=== PATIENT | female | born 1960 | race Caucasian/White ===

== ENCOUNTER → 2016-08-21 | Outpatient (REF) | payer BC ==
[~2016-08-21] MED LIST: ARIM1TAB4 PO; FLON0.054; HYDR-2808 PO; VITMTA PO
== END ==
LOC: M LAB REF 12:51
PROVIDERS: ATTEND Internal Medicine Medical Oncology
DX: C50.919 Malignant neoplasm of unspecified site of unspecified female breast (principal)

== ENCOUNTER → 2017-02-01 | Outpatient (CLI) | payer BC ==
--- NOTE | 2017-02-01 08:50 | REPMRS ---
Patient History The patient states she had a clinical breast exam in 2016. Patient is postmenopausal, has history of breast cancer at age 45, had previous chemotherapy, and is nulliparous. Family history of breast cancer in paternal aunt at age 50 or over and breast cancer in maternal aunt at age 50 or over. 2 chemotherapies. Radiation therapy. Took tamoxifen beginning at age 46. Digital Mammo Screening Bilat: February 01, 2017 - Exam #: [id number] Bilateral CC and MLO view(s) were taken. Technologist: Nina Wells, Technologist Prior study comparison: January 28, 2016, bilateral digital mammo screening bilat performed at [facility]. January 26, 2015, bilateral digital mammo screening bilat performed at [facility]. FINDINGS: There are scattered fibroglandular densities. There is a fairly symmetric fibroglandular pattern in both breasts. There has been no interval development of masses, areas of architectural distortion or clusters of microcalcifications typical of malignancy. ASSESSMENT: BI-RADS/ACR category 2 mammogram. Benign finding(s). Recommendation Routine screening mammogram of both breasts in 1 year (for women over age 40). This mammogram was interpreted with the aid of an FDA-approved computer-aided dectection system. Electronically Signed By: Mehdi Goodson MD 02/01/17 [id number]
== END ==
LOC: M RAD 08:27
PROVIDERS: ATTEND Internal Medicine Medical Oncology
DX: Z12.31 Encounter for screening mammogram for malignant neoplasm of breast (principal); Z78.0 Asymptomatic menopausal state; Z85.3 Personal history of malignant neoplasm of breast

== ENCOUNTER → 2017-02-20 | Outpatient (CLI) | payer BC ==
--- NOTE | 2017-02-21 12:21 | DEXA ---
AP SPINE L1 - L4 0.856 -2.7 -1.8 LT FEMUR TOTAL 0.994 -0.1 0.6 RT FEMUR TOTAL 0.932 -0.6 0.1 TOTAL BODY TOTAL OTHER DUAL FEMUR FRAX* ASSESSMENT Risk factors: Now performed. 10 year probability of fracture Major osteoporotic fracture % Hip fracture % COMMENTS: Normal bone densitometry of the left hip. There is low bone density of the right hip. There is osteoporosis of the spine. The decreased density of the spine does represent a significant change. The decreased density of the left hip does represent a significant change. The decreased density of the right hip does represent a significant change. The density of the spine has decreased 13.1% since the initial exam on 2011. Spine density has decreased 8.9% since the most recent exam on 02/26/2015. The density of the left hip has decreased 9.5% since the initial exam on 2011. The density of the left hip has decreased 3.9% since the most recent exam on . The density of the right hip has decreased 10.0% since the initial exam on 02/19. The density of the right hip has decreased 5.1% since the most recent exam on . FOLLOW-UP: Recommendation for the next bone density exam: 2 years. HARSHAD
== END ==
LOC: M WHC 08:42
PROVIDERS: ATTEND Internal Medicine Medical Oncology
DX: Z13.820 Encounter for screening for osteoporosis (principal); M81.0 Age-related osteoporosis without current pathological fracture; Z85.3 Personal history of malignant neoplasm of breast

== ENCOUNTER → 2017-09-18 | Outpatient (REF) | payer BC ==
[2017-09-18 15:08] LABS: CA15-3 ANTIGEN 23.9 U/ML (<32.4)
[2017-09-20 00:06] LABS: CA 27.29 33.5 U/mL (0.0-38.6)
== END ==
LOC: M LAB REF 13:32
DX: C50.919 Malignant neoplasm of unspecified site of unspecified female breast (principal)
CPT/HCPCS: 86300

== ENCOUNTER → 2018-02-04 | Outpatient (CLI) | payer BC | LOC: M RAD 08:30 | DX: Z12.31 Encounter for screening mammogram for malignant neoplasm of breast (principal); Z85.3 Personal history of malignant neoplasm of breast | CPT/HCPCS: 77067 ==

== ENCOUNTER → 2018-02-21 | Outpatient (CLI) | payer BC | LOC: M WHC 12:44 | DX: M85.88 Other specified disorders of bone density and structure, other site (principal); M85.851 Other specified disorders of bone density and structure, right thigh; M85.852 Other specified disorders of bone density and structure, left thigh; C79.9 Secondary malignant neoplasm of unspecified site | CPT/HCPCS: 77080 ==

== ENCOUNTER → 2018-11-19 | Outpatient (REF) | payer BC ==
[~2018-11-19] MED LIST changes: -ARIM1TAB4 PO; +ARIM1TAB5 PO; +CALC12504 PO; +FLON1SPR; +LISI-542 PO
[2018-11-19 11:49] LABS: HEMATOCRIT 42.8 % (36.0-47.0); HEMOGLOBIN 14.5 g/dl (12.0-15.5); MEAN CORPUSCULAR HEMOGLOBIN 32.1 pg (27.0-33.0); MEAN CORPUSCULAR HGB CONC 33.9 g/dl (32.0-36.5); MEAN CORPUSCULAR VOLUME 94.7 fl (80.0-96.0); PLATELET COUNT, AUTOMATED 269 10^3/uL (150-450); RED BLOOD COUNT 4.52 10^6/uL (4.00-5.40)
[2018-11-19 12:02] LABS: ALBUMIN 4.1 GM/DL (3.2-5.2); ALT/SGPT 25 U/L (12-78); BILIRUBIN,TOTAL 0.4 MG/DL (0.2-1.0); BLOOD UREA NITROGEN 15 MG/DL (7-18); CALCIUM LEVEL 9.5 MG/DL (8.5-10.1); CARBON DIOXIDE LEVEL 29 MEQ/L (21-32); CHLORIDE LEVEL 105 MEQ/L (98-107); CHOLESTEROL LEVEL 193 MG/DL (<200); CHOLESTEROL RISK RATIO 3.216 (<5); CREATININE FOR GFR 0.81 MG/DL (0.55-1.30); GLOMERULAR FILTRATION RATE > 60.0 (>51); GLUCOSE, FASTING 116 MG/DL (70-100); HDL CHOLESTEROL 60 MG/DL (>40); LDL CHOLESTEROL 102 MG/DL (<100); NON-HDL-C 133 MG/DL; POTASSIUM SERUM 4.3 MEQ/L (3.5-5.1); SODIUM LEVEL 139 MEQ/L (136-145); TOTAL PROTEIN 7.2 GM/DL (6.4-8.2); TRIGLYCERIDES LEVEL 153 MG/DL (<150)
== END ==
LOC: M SFHCCLAY 07:39
PROVIDERS: ATTEND Nurse Practitioner Family
DX: I10 Essential (primary) hypertension (principal); E78.5 Hyperlipidemia, unspecified

== ENCOUNTER → 2019-02-06 | Outpatient (CLI) | payer BC ==
[~2019-02-06] MED LIST changes: -CALC12504 PO; +CALC500T61 PO; +[UNRECOGNIZED DRUG - CODE] PO
--- NOTE | 2019-02-06 09:38 | REP ---
Left breast ultrasound: Ultrasound of the left breast identifies a hypoechoic mass centrally in the breast with irregular lobulated margins measuring 1.7 by 1.6 by 2.3 cm, corresponding to the mass identified on the mammograms earlier today. . Impression: BIRADS category five, highly suspicious of malignancy. Electronically Signed by Mehdi Hull MD 02/06/2019 09:30 A
--- NOTE | 2019-02-06 09:57 | REP ---
BILATERAL SCREENING DIGITAL MAMMOGRAM WITH 3D TOMOSYNTHESIS: There are no palpable abnormalities or other breast complaints. The the patient states she had a clinical breast examination in October/2018. The Tyrer-Cuzick score is: The NA. The the patient is a clinical history of bilateral breast carcinoma. Comparisons are 01/28/2016, 02/01/2017 and 02/04/2018. The breasts are almost entirely fatty.. There is a new 3.4 cm mass-like density centrally in the left breast as a change from all prior studies. There are benign macrocalcifications bilaterally, unchanged. Impression: BIRADS/ACR category 0 mammogram. Additional imaging evaluation is needed. Recommendation: The patient should return for diagnostic spot compression views of the left breast and left breast ultrasound . We are attempting to schedule these studies so that they can be performed today. This mammogram was interpreted with the aid of a FDA approved computer-aided detection system. A. Negative mammogram reports should not delay biopsy if a dominant or clinically suspicious mass is present. B. Not all breast cancers are identified by mammography or tomosynthesis. C. Adenosis and dense breasts may obscure an underlying neoplasm. Patient letter M0. Left breast on diagnostic spot compression views: Spot compression views are performed in the MLO, CC and L L projections. The mass like density persists on the spot compression views. The margins of the mass-like density are poorly defined. Therefore, left breast ultrasound will be performed. Electronically Signed by Mehdi Hull MD 02/06/2019 09:48 A
== END ==
LOC: M RAD 07:59
PROVIDERS: ATTEND Internal Medicine Medical Oncology
DX: Z12.31 Encounter for screening mammogram for malignant neoplasm of breast (principal); Z85.3 Personal history of malignant neoplasm of breast

== ENCOUNTER → 2019-02-14 | Outpatient (CLI) | payer BC ==
[~2019-02-14] MED LIST changes: +LIDOCAINE 1% MDV 20ML VIAL As Ordered ONE
[2019-02-14 13:10] VITALS: BP 133/76
--- NOTE | 2019-02-14 18:26 | REP ---
POST-BIOPSY MAMMOGRAM LEFT BREAST: Post-biopsy mammogram of the left breast was performed in the MLO and CC projections, following ultrasound guided biopsy of a nodule recently identified in the left breast 02/06/2019. The metallic biopsy clip is in the biopsied nodule. Electronically Signed by Mehdi Goodson MD 02/17/2019 11:29 A
--- NOTE | 2019-02-17 11:18 | REP ---
Ultrasound-guided left breast biopsy. The procedure was performed by TAD Velazquez, under the direct supervision of Dr. Goodson. The patient has a history of a hypoechoic mass centrally in the left breast measuring 1.7 x 1.6 x 2.3 cm on an ultrasound dated 02/06/2019. The risks and benefits of the procedure were explained to the patient and informed consent was obtained both verbally and written. Directly prior to the start of the procedure, a formal timeout was completed in the procedure room. The left breast mass was localized using ultrasound guidance. The skin was prepped and draped in a sterile fashion. 10 ml 1% lidocaine was used as a local anesthetic. Using ultrasound guidance a 13-gauge suction assisted Mammotome needle was inserted and 6 core biopsy samples were obtained. A marker clip was placed at the biopsy site. The patient tolerated the procedure well and there were no immediate complications. After the appropriate monitored convalescence the patient was discharged from the department. Reviewed by TAD Moore 02/14/2019 01:47 P Electronically Signed by Mehdi Goodson MD 02/17/2019 11:09 A
== END ==
LOC: M IRPRO 11:40
DX: C50.912 Malignant neoplasm of unspecified site of left female breast (principal)

== ENCOUNTER → 2019-02-17 | Outpatient (CLI) | payer BC ==
[~2019-02-17] MED LIST changes: -LIDOCAINE 1% MDV 20ML VIAL As Ordered ONE
--- NOTE | 2019-02-21 15:18 | DEXA ---
AP SPINE L1 - L4 0.947 -2.0 -0.9 LT FEMUR TOTAL 1.069 0.5 1.3 LT NECK 0.961 -0.6 0.6 RT FEMUR TOTAL 0.974 -0.3 0.6 RT NECK 0.926 -0.8 0.4 TOTAL BODY TOTAL OTHER COMMENTS: Normal bone densitometry of the hips. There is low bone density of the spine. The density of the spine has decreased 3.9% since the initial exam on 02/20/2012. The spine density has increased 1.2% since the most recent exam on 02/21/2018. The density of the left hip has decreased 2.6% since the initial exam on 02/20/2012. The density of the left hip has increased 1.7% since the most recent exam on 02/21/2018. The density of the right hip has decreased 5.9% since the initial exam on 02/20/2012. The density of the right hip has increased 0.7% since the most recent exam on 02/21/2018. FOLLOW-UP: Recommendation for the next bone density exam: 2 years. JUAND
== END ==
LOC: M WHC 07:35
PROVIDERS: ATTEND Internal Medicine Medical Oncology
DX: Z85.3 Personal history of malignant neoplasm of breast (principal)

== ENCOUNTER → 2019-02-26 | Outpatient (CLI) | payer BC ==
[~2019-02-26] MED LIST changes: +ACET-907 PO; +CEPH500C PO; +DOXY100C PO; +GASTROGRAFIN SOLUTION 30ML (Q9963) As Ordered ONE; +ISOVUE-370 76% 100ML VIAL (Q9967) As Ordered ONE; +KEFL500C17 PO; +ONDA8TAB10 PO; +PAXI10TA12 PO; +PROC10TA4 PO
--- NOTE | 2019-02-26 10:44 | REP ---
REASON FOR EXAM: History of breast cancer. Prior CT examinations of the chest of 03/11/2010 and 04/10/2006 have been reviewed. CONTRAST: 100 mL Isovue-370. There is no mediastinal or hilar adenopathy. There are no pleural or pericardial effusions. The imaged osseous structures are within normal limits. Evaluation of the lung mullins shows no new abnormal nodules, masses, or opacities. Incidental note is made of a stable 3-mm sized right apical nodule posteriorly. Postbiopsy and surgical clips are seen in each breast. CT cannot evaluate breast tissue. There is, however, nodular density in the left breast with surgical biopsy marking clip in place. IMPRESSION: No acute intrathoracic disease. Findings as described above. Electronically Signed by Manuel Grove DO 02/26/2019 12:38 P
--- NOTE | 2019-02-26 10:44 | REP ---
REASON: History of breast cancer. COMPARISON: Multiple, all reviewed, the latest 02/02/2015. CONTRAST: 100 mL Isovue 370. The liver, gallbladder, spleen, pancreas, adrenal glands, and kidneys are within normal limits and essentially unchanged. The abdominal aorta and paraaortic regions are within normal limits. The bowel loops and their mesenteries are within normal limits. There is no free fluid or free air. There is no intra-abdominal mass or adenopathy. CT PELVIS: The bowel loops and their mesenteries are within normal limits. There is no mass or adenopathy. There is no free fluid or free air. Bone window technique throughout the exam shows chronic spinal degenerative changes status quo. IMPRESSION: No acute intra-abdominal or intrapelvic disease. Electronically Signed by Manuel Grove DO 02/26/2019 12:37 P
--- NOTE | 2019-02-26 11:49 | REP ---
WHOLE BODY BONE SCAN: Following the intravenous administration of 22 mCi technetium 99m MDP, patient's whole body is imaged in the anterior and posterior projections with additional oblique and lateral views obtained. Comparison is made with prior study of 03/11/2010. There is no compelling scintigraphic evidence of osseous metastases. There appears to be some minimal scattered arthritic uptake, specifically in portions of the spine, at the right hip joint, and at the sacroiliac joints. No suspicious focal area of abnormal uptake is seen in the axial or appendicular skeleton. Renal and bladder activity are seen. IMPRESSION: No compelling scintigraphic evidence of osseous metastases. Electronically Signed by Mehdi Goodson MD 02/26/2019 02:40 P
== END ==
LOC: M RAD 07:28
PROVIDERS: ATTEND Internal Medicine Medical Oncology
DX: C50.912 Malignant neoplasm of unspecified site of left female breast (principal); Z12.89 Encounter for screening for malignant neoplasm of other sites
CPT/HCPCS: 71260; 74177; 78306; A9503; Q9963; Q9967

== ENCOUNTER → 2019-04-17 | Outpatient (CLI) | payer BC ==
[~2019-04-17] MED LIST changes: -ACET-907 PO; -CEPH500C PO; -DOXY100C PO; -GASTROGRAFIN SOLUTION 30ML (Q9963) As Ordered ONE; -ISOVUE-370 76% 100ML VIAL (Q9967) As Ordered ONE; -KEFL500C17 PO; -ONDA8TAB10 PO; +ONDA8TAB7 PO
--- NOTE | 2019-04-17 11:21 | REP ---
DIAGNOSTIC MAMMOGRAM LEFT BREAST WITH 3D TOMOSYNTHESIS AND LEFT BREAST ULTRASOUND: MLO and CC views of the left breast performed with 3D tomosynthesis. Patient is status post chemotherapy for left breast cancer diagnosed by biopsy 02/14/2019. Family history of breast cancer in maternal aunt and paternal aunt. Prior personal history bilateral breast cancer. Comparison made with prior diagnostic images 02/06/2019. Comparison is also made with other prior exams. MLO and CC views of the left breast performed with 3D tomosynthesis show decreased in size of the mass in the outer left breast. Measurements are estimated to be 14 x 7 mm, previously 22 x 18 mm. No new mass or clustered microcalcifications are seen. Metallic clip is again seen at the biopsy site. Real-time sonographic evaluation of the left breast performed and compared to the prior ultrasound of 02/06/2019. The irregular hypoechoic mass is again see now demonstrating an internal clip. Irregular borders are again noted. The mass has decreased in size. Current measurements are 1.2 x 0.5 x 1.1 cm, previously 1.7 x 1.6 x 1.9 cm. IMPRESSION: BIRADS 6: BI-RADS/ACR category 6 mammogram. Known Biopsy Proven Malignancy. ACR 6 known left breast cancer. Ultrasound-guided biopsy of a mass in the left breast 02/14/2019 was positive for breast cancer. Patient has had chemotherapy since that exam. The mass has decreased in size both mammographically and sonographically as discussed in detail above. This mammogram was interpreted with the aid of an FDA-approved computer-aided detection system. A. Negative x-ray reports should not delay biopsy if a dominant or clinically suspicious mass is present. B. Four to eight percent of cancers are not identified by x-ray. C. Adenosis and dense breasts may obscure an underlying neoplasm. The patient states she/he had a clinical breast exam in February 2019. Electronically Signed by Mehdi Goodson MD 04/18/2019 09:17 A
== END ==
LOC: M RAD 09:46
PROVIDERS: ATTEND Internal Medicine Medical Oncology
DX: C50.812 Malignant neoplasm of overlapping sites of left female breast (principal); Z80.3 Family history of malignant neoplasm of breast
CPT/HCPCS: 76642; 77065; G0279

== ENCOUNTER 2019-05-26 13:41 | Inpatient (IN) | payer BC ==
[~2019-05-26] VITALS: Ht 160 cm; Wt 83.0 kg
[~2019-05-26 13:41] MED LIST changes: +KEFL500C17 PO
[2019-05-26 14:20] LABS: HEMATOCRIT 39.1 % (36.0-47.0); HEMOGLOBIN 12.4 g/dl (12.0-15.5); MEAN CORPUSCULAR HEMOGLOBIN 32.5 pg (27.0-33.0); MEAN CORPUSCULAR HGB CONC 31.7 g/dl (32.0-36.5); MEAN CORPUSCULAR VOLUME 102.6 fl (80.0-96.0); PLATELET COUNT, AUTOMATED 259 10^3/uL (150-450); RED BLOOD COUNT 3.81 10^6/uL (4.00-5.40); WHITE BLOOD COUNT 29.6 10^3/uL (4.0-10.0)
[2019-05-26 14:39] LABS: ATYPICAL LYMPH 1 % (0-5); LYMPHOCYTES 9 % (16-44); METAMYELOCYTES 4 % (0-0); MONOCYTES 4 % (0-5); MYELOCYTES 3 % (0-0); NEUTROPHILS 71 % (28-66)
[2019-05-26 14:40] LABS: PLATELET ESTIMATE NORMAL (NORMAL)
[2019-05-26 14:47] LABS: ALBUMIN 3.9 GM/DL (3.2-5.2); ALT/SGPT 87 U/L (12-78); BILIRUBIN,DIRECT < 0.1 MG/DL (0.0-0.2); BILIRUBIN,TOTAL 0.3 MG/DL (0.2-1.0); BLOOD UREA NITROGEN 12 MG/DL (7-18); C REACTIVE PROTEIN QUANTITATIV 0.82 MG/DL (0.00-0.30); CALCIUM LEVEL 8.9 MG/DL (8.5-10.1); CARBON DIOXIDE LEVEL 26 MEQ/L (21-32); CHLORIDE LEVEL 103 MEQ/L (98-107); CREATININE FOR GFR 0.61 MG/DL (0.55-1.30); GLOMERULAR FILTRATION RATE > 60.0 (>51); GLUCOSE, FASTING 103 MG/DL (70-100); POTASSIUM SERUM 4.3 MEQ/L (3.5-5.1); SODIUM LEVEL 137 MEQ/L (136-145)
[2019-05-26] MEDS ORDERED: VANCOMYCIN HCL 1,000 MG, VIAL MATE ADAPTER 1 EACH in D5W 250 ML IV ONE (15:15)
[2019-05-26] MEDS ORDERED: CEPH500C PO (15:45)
[2019-05-26] MEDS ORDERED: ACET-907 PO (15:45)
[2019-05-26] MEDS ORDERED: ONDANSETRON 4 MG TAB (S0181) PO PRN (16:15)
[2019-05-26] MEDS ORDERED: ACETAMINOPHEN TAB 650MG DOSE (2X325MG) PO PRN (16:15)
[2019-05-26] MEDS ORDERED: PROCHLORPERAZINE 5 MG TAB (S0183) PO PRN (16:15)
--- NOTE | 2019-05-26 16:29 | HPEPDOC ---
General Date of Admission Date of Service: May 26, 2019 Chief Complaint The patient is a 58-year-old female admitted with a reason for visit of Hand Pain. History of Present Illness 58 y/o F with h/o infiltrating ductal carcinoma of the left breast, stage II, recently completed neoadjuvant chemotherapy using Taxotere with cyclophosphamide and is scheduled for surgery to be performed 06/11/2019. Pt most recently received systemic antineoplastic chemotherapy on May 15, administered intrav enously through the right hand. Following that treatment, she developed erythema, swelling and pain of the right hand and was evaluated by her primary oncologist, Dr. Zamudio and was prescribed PO keflex on 05/21/2019. Pt noticed that her right hand redness continued to get worse and it spread to wrist. Pt was also taking PO tylenol at home for right had pain. In ER pt was found afebrile and hemodynamically stable. Pt was given iv vancomycin Hospitalist service was consulted to admit the pt for further management. Pt was seen and examined at bedside. Pt c/o right hand redness and mild swelling Home Medications Scheduled Cephalexin (Cephalexin) 500 Mg Capsule, 500 MG PO TID, (Reported) FILLED 05/22/19 FOR 7 DAYS Lisinopril (Lisinopril) 5 Mg Tablet, 5 MG PO DAILY, (Reported) Paroxetine HCl (Paxil) 10 Mg Tablet, 10 MG PO DAILY Scheduled PRN Acetaminophen (Tylenol) 325 Mg Tablet, 650 MG PO QID PRN for PAIN, (Reported) Ondansetron HCl (Ondansetron HCl) 8 Mg Tablet, 8 MG PO Q6H PRN for NAUSEA OR VOMITING Prochlorperazine Maleate (Prochlorperazine Maleate) 10 Mg Tablet, 10 MG PO Q8H PRN for NAUSEA OR VOMITING Allergies Coded Allergies: SEASONAL ALLERGIES (Verified Allergy, Unknown, NASAL CONGESTION, 02/02/15) Past Medical History Medical History HTN, h/o b/l breast cancer Surgical History left breast lumpectomy 2006 Right breast lumpectomy 2010 Appendectomy Family History Significant Family History: Noncontributory Mother had HTN Social History * Smoker: non-smoker Alcohol: Denies Drugs: denies A-FIB/CHADSVASC A-FIB History Current/History of A-Fib/PAF?: No Current PO Anticoag Therapy: No Review of Systems Other systems 10 points review of system was performed and it was negative except as per HPI Physical Examination General Exam: Positive: Alert, Cooperative, No Acute Distress Eye Exam: Positive: PERRLA ENT Exam: Positive: Mucous membr. moist/pink Neck Exam: Positive: Supple Chest Exam: Positive: Clear to auscultation, Normal air movement Heart Exam: Positive: Rate Normal Abdomen Exam: Positive: Normal bowel sounds Skin Exam: Positive: Other skin issue (diffuse redness right hand with mild swelling upto the wrist, warmth/tenderness +, NO open lesion or No fluctuant lesion) Neuro Exam: Positive: Strength at 5/5 X4 ext Psych Exam: Positive: Mental status NL Vital Signs Vital Signs Date Time Temp Pulse Resp B/P (MAP) Pulse Ox O2 Delivery O2 Flow Rate FiO2 05/26/19 14:12 98.6 05/26/19 13:44 92 16 131/81 100 Room Air Laboratory Data Labs 24H Laboratory Tests 2 05/26/19 14:08: Immature Granulocyte % (Auto) , Nucleated Red Blood Cells % (auto) 0.5H, Neutrophils 71H, Band Neutrophils 8, Lymphocytes (Manual) 9L, Monocytes (Manual) 4, Metamyelocytes 4H, Myelocytes 3H, Atypical Lymphocytes 1, Platelet Estimate NORMAL, Anion Gap 8, Glomerular Filtration Rate > 60.0, Calcium Level 8.9, Total Bilirubin 0.3, Direct Bilirubin < 0.1, Aspartate Amino Transf (AST/SGOT) 41H, Alanine Aminotransferase (ALT/SGPT) 87H, Alkaline Phosphatase 179H, C-Reactive Protein, Quantitative 0.82H, Total Protein 7.0, Albumin 3.9, Albumin/Globulin Ratio 1.26 CBC/BMP Laboratory Tests 05/26/19 14:08 Microbiology Microbiology 05/26/19 Blood Culture, Received Pending 05/26/19 Blood Culture, Received Pending Assessment/Plan 58 y/o F c/o worsening redness, mild swelling, pain of right hand for past 1 week. Pt had chemotherapy using right hand dorsal site iv access on 05/15/2019 and there was some concern of infiltration of chemotherapy medicine. Pt was started on PO keflex on 05/21/2019 due to redness. Labs reviewed Impression- right had cellulitis. Plan 1. Right hand cellulitis. IV vancomycin. will keep right upper extremity elevated. will continue to monitor closely. There is no concern of abscess at the time of admission. Right hand/finger joints movement full. depending on clinical course over next 24 hours will consider ID eval Pt does have pre op eval testing scheduled at [facility] on 05/29/19 so if pt's clinical continue to improve will consider discharging her on 05/28/19. 2. HTN Home meds 3. Left breast cancer to f/u with oncology as scheduled DVT ppx- sq Lovenox Plan / VTE VTE Prophylaxis Ordered?: Yes LEANNE BETHEA MD May 26, 2019 16:29
[2019-05-26 20:25] VITALS: BP 120/81
[2019-05-27 06:29] LABS: HEMATOCRIT 37.8 % (36.0-47.0); MEAN CORPUSCULAR HEMOGLOBIN 32.6 pg (27.0-33.0); MEAN CORPUSCULAR HGB CONC 31.7 g/dl (32.0-36.5); MEAN CORPUSCULAR VOLUME 102.7 fl (80.0-96.0); PLATELET COUNT, AUTOMATED 237 10^3/uL (150-450); RED BLOOD COUNT 3.68 10^6/uL (4.00-5.40); WHITE BLOOD COUNT 16.3 10^3/uL (4.0-10.0)
[2019-05-27 06:32] VITALS: BP 121/81
[2019-05-27 06:47] LABS: ALBUMIN 3.4 GM/DL (3.2-5.2); ALT/SGPT 98 U/L (12-78); BILIRUBIN,TOTAL 0.4 MG/DL (0.2-1.0); BLOOD UREA NITROGEN 12 MG/DL (7-18); CALCIUM LEVEL 8.8 MG/DL (8.5-10.1); CARBON DIOXIDE LEVEL 28 MEQ/L (21-32); CHLORIDE LEVEL 105 MEQ/L (98-107); CREATININE FOR GFR 0.55 MG/DL (0.55-1.30); GLOMERULAR FILTRATION RATE > 60.0 (>51); GLUCOSE, FASTING 107 MG/DL (70-100); POTASSIUM SERUM 4.2 MEQ/L (3.5-5.1); SODIUM LEVEL 139 MEQ/L (136-145); TOTAL PROTEIN 6.9 GM/DL (6.4-8.2)
[2019-05-27] MEDS: ENOXAPARIN 40 MG/0.4 ML SYRINGE (J1650) SC SCH (08:45)
[2019-05-27] MEDS: PARoxetine 10MG TABLET PO SCH (08:45)
[2019-05-27] MEDS: LISINOPRIL 5 MG TAB PO SCH (08:45)
--- NOTE | 2019-05-27 09:47 | IPNPDOC ---
Subjective Date Seen The patient was seen on 05/27/19. Subjective Chief Complaint/HPI RIGHT hand cellulitis Events since last encounter Admitted overnight for right hand cellulitis. see H&P for full details. WBC improving after 1 dose of Vancomycin. Patient denies c/o. Constitutional: Denies: Chills, Fever, Night Sweats Pulmonary: Denies: Dyspnea, Cough Cardiovascular: Denies: Chest Pain, Palpitations, Orthopnea, Paroxysmal Noc. Dyspnea, Lt Headedness Gastrointestinal: Denies: Nausea, Vomiting, Abdominal Pain, Diarrhea, Constipation Genitourinary: Denies: Dysuria, Frequency, Incontinence, Retention Musculoskeletal: Reports: Other Symptoms (denies pain in hand) Objective Physical Examination General Exam: Positive: Alert, Cooperative, No Acute Distress Eye Exam: Positive: PERRLA ENT Exam: Positive: Mucous membr. moist/pink Neck Exam: Positive: Supple Chest Exam: Positive: Clear to auscultation, Normal air movement Heart Exam: Positive: Rate Normal Abdomen Exam: Positive: Normal bowel sounds Skin Exam: Positive: Other skin issue (diffuse redness right hand with mild swelling upto the wrist, warmth/tenderness +, NO open lesion or No fluctuant lesion, has not progressed beyond skin markings) Neuro Exam: Positive: Strength at 5/5 X4 ext Psych Exam: Positive: Mental status NL Assessment /Plan Problems (1) Cellulitis Status: Acute Problem Text: S/p Vancomycin 1 gram. WBC improved from 29.6 to 16.3. CRP added to am labs. Repeat labs in am. Continue Vancomycin. (2) Breast cancer, left breast Onset Date: ~ 01/2019 Status: Acute Problem Text: last chemot was 05/15/2019. Anticipating double mastectomy on 06/11/2019. Has pre-op appt at [facility] on 05/29/2019. If medically stable, will try for DC prior to pre-op appt. Plan/VTE VTE Prophylaxis Ordered?: Yes (Lovenox) Plan Diet: Continue Current Activity: Continue Current Anticipated Discharge: Home VS, I&O, 24H, Fishbone Vital Signs/I&O Vital Signs Date Time Temp Pulse Resp B/P (MAP) Pulse Ox O2 Delivery O2 Flow Rate FiO2 05/27/19 08:45 121/81 05/27/19 06:32 98.7 79 18 96 Room Air I&O- Last 24 Hours up to 6 AM 05/27/19 06:00 Intake Total 870 ml Output Total 0 ml Balance 870 ml Laboratory Data 24H LABS Laboratory Tests 2 05/26/19 14:08: Immature Granulocyte % (Auto) , Nucleated Red Blood Cells % (auto) 0.5H, Neutrophils 71H, Band Neutrophils 8, Lymphocytes (Manual) 9L, Monocytes (Manual) 4, Metamyelocytes 4H, Myelocytes 3H, Atypical Lymphocytes 1, Platelet Estimate NORMAL, Anion Gap 8, Glomerular Filtration Rate > 60.0, Calcium Level 8.9, Total Bilirubin 0.3, Direct Bilirubin < 0.1, Aspartate Amino Transf (AST/SGOT) 41H, Alanine Aminotransferase (ALT/SGPT) 87H, Alkaline Phosphatase 179H, C-Reactive Protein, Quantitative 0.82H, Total Protein 7.0, Albumin 3.9, Albumin/Globulin Ratio 1.26 05/27/19 05:50: Nucleated Red Blood Cells % (auto) 0.2H, Anion Gap 6L, Glomerular Filtration Rate > 60.0, Calcium Level 8.8, Total Bilirubin 0.4, Aspartate Amino Transf (AST/SGOT) 53H, Alanine Aminotransferase (ALT/SGPT) 98H, Alkaline Phosphatase 152H, Total Protein 6.9, Albumin 3.4, Albumin/Globulin Ratio 0.97L CBC/BMP Laboratory Tests 05/26/19 14:08 05/27/19 05:50 Microbiology Microbiology 05/26/19 Blood Culture, Received Pending 05/26/19 Blood Culture, Received Pending Norma Rothman [facility] May 27, 2019 09:47
[2019-05-27] MEDS ORDERED: VANCOMYCIN HCL 1,000 MG, VIAL MATE ADAPTER 1 EACH in D5W 250 ML IV ONE (10:00)
[2019-05-27 10:14] LABS: C REACTIVE PROTEIN QUANTITATIV 0.68 MG/DL (0.00-0.30)
[2019-05-27] MEDS ORDERED: VANCOMYCIN HCL 750 MG, VIAL MATE ADAPTER 1 EACH in D5W 250 ML IV ONE (11:00)
[2019-05-27] MEDS ORDERED: methylPREDNISolone INJ 125 MG/2 ML VIAL (J2930) IV ONE (12:30)
[2019-05-27] MEDS ORDERED: diphenhydrAMINE INJ 50MG/ML VIAL (J1200) IV ONE (12:30)
[2019-05-27 14:00] VITALS: BP 125/79
[2019-05-27] MEDS: CEFTAROLINE FOSAMIL 600 MG in D5W MINI-BAG PLUS 50 ML IV SCH (15:36)
[2019-05-27] MEDS ORDERED: VANCOMYCIN HCL 1,000 MG, VIAL MATE ADAPTER 1 EACH in D5W 250 ML IV SCH (17:00)
[2019-05-27 20:50] VITALS: BP 128/82
[2019-05-28] MEDS: CEFTAROLINE FOSAMIL 600 MG in D5W MINI-BAG PLUS 50 ML IV SCH ×2 (03:22→16:38)
[2019-05-28 06:00] VITALS: BP 137/80
[2019-05-28 06:48] LABS: HEMATOCRIT 36.9 % (36.0-47.0); HEMOGLOBIN 12.1 g/dl (12.0-15.5); MEAN CORPUSCULAR HEMOGLOBIN 32.7 pg (27.0-33.0); MEAN CORPUSCULAR HGB CONC 32.8 g/dl (32.0-36.5); MEAN CORPUSCULAR VOLUME 99.7 fl (80.0-96.0); PLATELET COUNT, AUTOMATED 231 10^3/uL (150-450); WHITE BLOOD COUNT 22.7 10^3/uL (4.0-10.0)
[2019-05-28 07:18] LABS: ALBUMIN 3.5 GM/DL (3.2-5.2); ALT/SGPT 119 U/L (12-78); BILIRUBIN,TOTAL 0.2 MG/DL (0.2-1.0); BLOOD UREA NITROGEN 17 MG/DL (7-18); C REACTIVE PROTEIN QUANTITATIV 0.43 MG/DL (0.00-0.30); CALCIUM LEVEL 9.3 MG/DL (8.5-10.1); CARBON DIOXIDE LEVEL 26 MEQ/L (21-32); CHLORIDE LEVEL 109 MEQ/L (98-107); CREATININE FOR GFR 0.55 MG/DL (0.55-1.30); GLOMERULAR FILTRATION RATE > 60.0 (>51); GLUCOSE, FASTING 122 MG/DL (70-100); POTASSIUM SERUM 4.1 MEQ/L (3.5-5.1); SODIUM LEVEL 141 MEQ/L (136-145); TOTAL PROTEIN 7.1 GM/DL (6.4-8.2)
[2019-05-28 07:20] LABS: ATYPICAL LYMPH 1 % (0-5); LYMPHOCYTES 8 % (16-44); MONOCYTES 4 % (0-5); NEUTROPHILS 85 % (28-66)
[2019-05-28 07:22] LABS: DOHLE BODIES 1+; PLATELET ESTIMATE NORMAL (NORMAL)
[2019-05-28 08:00] VITALS: BP 135/79
--- NOTE | 2019-05-28 08:12 | IPNPDOC ---
Subjective Date Seen The patient was seen on 05/28/19. Subjective Chief Complaint/HPI Facial erythema from Vanco resolved. Had some diarrhea on Vanco. This has resolved. Tolerating Ceftaroline. No new complaints Constitutional: Denies: Chills, Fever Pulmonary: Denies: Dyspnea, Cough Cardiovascular: Denies: Chest Pain, Palpitations Gastrointestinal: Denies: Nausea, Vomiting, Abdominal Pain, Diarrhea, Constipation Objective Physical Examination General Exam: Positive: Alert, Cooperative, No Acute Distress Neck Exam: Positive: Supple Chest Exam: Positive: Clear to auscultation, Normal air movement; Negative: Rales, Rhonchi, Wheezing Heart Exam: Positive: Rate Normal, Regular Rhythm Abdomen Exam: Positive: Normal bowel sounds, Soft; Negative: Tenderness Extremity Exam: Negative: Edema Skin Exam: Positive: Other skin issue (Right hand without edema. Erythema still prominant on dorsum of hand unchanged, but has not extended beyond marker lines. ) Psych Exam: Positive: Mental status NL Assessment /Plan Problems (1) Cellulitis Status: Acute Problem Text: 05/28 - Vanco caused facial flushing/erythema. Switched to Ceftaroline - s/p one 2 doses. WBC has gone up, but CRP trending down and MRSA PCR screen negative. Hand swelling improved. Still with Erythema. Cont Ceftaroline x today and hope for d/c in am on oral abx. (Patient hoping to get out in time to keep appt at [facility] tomorrow at 1 pm for Pre-op) (2) Breast cancer, left breast Onset Date: ~ 01/2019 Status: Acute Problem Text: last chemot was 05/15/2019. Anticipating double mastectomy on 06/11/2019. Has pre-op appt at [facility] on 05/29/2019. If medically stable, will try for DC prior to pre-op appt. Plan/VTE VTE Prophylaxis Ordered?: Yes (Lovenox) Plan Diet: Continue Current Activity: Continue Current Anticipated Discharge: Home VS, I&O, 24H, Fishbone Vital Signs/I&O Vital Signs Date Time Temp Pulse Resp B/P (MAP) Pulse Ox O2 Delivery O2 Flow Rate FiO2 05/28/19 06:00 97.5 92 17 137/80 (99) 94 Room Air I&O- Last 24 Hours up to 6 AM 05/28/19 06:00 Intake Total 1850 ml Output Total 950 ml Balance 900 ml Laboratory Data 24H LABS Laboratory Tests 2 05/27/19 18:53: Methicillin-Resist S.aureus DNA PCR NOT DETECTED 05/28/19 06:26: Immature Granulocyte % (Auto) , Nucleated Red Blood Cells % (auto) 0.0, Neutrophils 85H, Band Neutrophils 2, Lymphocytes (Manual) 8L, Monocytes (Manual) 4, Atypical Lymphocytes 1, Macrocytosis 1+, Dohle Bodies 1+, Platelet Estimate NORMAL, Anion Gap 6L, Glomerular Filtration Rate > 60.0, Calcium Level 9.3, Total Bilirubin 0.2, Aspartate Amino Transf (AST/SGOT) 49H, Alanine Aminotransferase (ALT/SGPT) 119H, Alkaline Phosphatase 171H, C-Reactive Protein, Quantitative 0.43H, Total Protein 7.1, Albumin 3.5, Albumin/Globulin Ratio 0.97L CBC/BMP Laboratory Tests 05/28/19 06:26 Microbiology Microbiology 05/26/19 Blood Culture - Preliminary, Resulted No growth after 24 hours . All specim... 05/26/19 Blood Culture - Preliminary, Resulted No growth after 24 hours . All specim... ANDI VENTURA PA-C May 28, 2019 08:12
[2019-05-28] MEDS: ENOXAPARIN 40 MG/0.4 ML SYRINGE (J1650) SC SCH (08:14)
[2019-05-28] MEDS: PARoxetine 10MG TABLET PO SCH (09:19)
[2019-05-28] MEDS: LISINOPRIL 5 MG TAB PO SCH (09:19)
[2019-05-28 14:30] VITALS: BP 121/71
[2019-05-28 20:00] VITALS: BP 117/63
[2019-05-29] MEDS: CEFTAROLINE FOSAMIL 600 MG in D5W MINI-BAG PLUS 50 ML IV SCH (03:24)
[2019-05-29 06:00] VITALS: BP 135/75
[2019-05-29 06:54] LABS: HEMATOCRIT 36.3 % (36.0-47.0); HEMOGLOBIN 11.6 g/dl (12.0-15.5); MEAN CORPUSCULAR HEMOGLOBIN 32.6 pg (27.0-33.0); PLATELET COUNT, AUTOMATED 197 10^3/uL (150-450); RED BLOOD COUNT 3.56 10^6/uL (4.00-5.40); WHITE BLOOD COUNT 10.8 10^3/uL (4.0-10.0)
[2019-05-29 07:21] LABS: ALBUMIN 3.2 GM/DL (3.2-5.2); ALT/SGPT 103 U/L (12-78); BILIRUBIN,TOTAL 0.7 MG/DL (0.2-1.0); BLOOD UREA NITROGEN 19 MG/DL (7-18); CALCIUM LEVEL 8.4 MG/DL (8.5-10.1); CARBON DIOXIDE LEVEL 27 MEQ/L (21-32); CHLORIDE LEVEL 108 MEQ/L (98-107); CREATININE FOR GFR 0.55 MG/DL (0.55-1.30); GLOMERULAR FILTRATION RATE > 60.0 (>51); GLUCOSE, FASTING 98 MG/DL (70-100); SODIUM LEVEL 139 MEQ/L (136-145); TOTAL PROTEIN 6.3 GM/DL (6.4-8.2)
[2019-05-29] MEDS ORDERED: KEFL500C17 PO (07:44)
[2019-05-29] MEDS ORDERED: DOXY100C PO (07:44)
[2019-05-29 08:39] VITALS: BP 135/75
[2019-05-29] MEDS: ENOXAPARIN 40 MG/0.4 ML SYRINGE (J1650) SC SCH (08:39)
[2019-05-29] MEDS: PARoxetine 10MG TABLET PO SCH (08:39)
[2019-05-29] MEDS: LISINOPRIL 5 MG TAB PO SCH (08:39)
[2019-05-29] MEDS ORDERED: DOXYCYCLINE HYCLATE 100 MG TAB PO ONE (09:00)
[2019-05-29] MEDS ORDERED: CEPHALEXIN 500 MG CAP PO ONE (09:00)
--- NOTE | 2019-05-29 17:53 | DSES ---
DATE OF ADMISSION: 05/26/2019 DATE OF DISCHARGE: 05/29/2019 BRIEF HISTORY AND PHYSICAL: The patient is a 58-year-old patient of Dr. Michele with a history of infiltrating ductal carcinoma of the left breast, stage II, recently completed new adjunctive chemotherapy using Taxotere with cyclophosphamide and scheduled for surgery to be performed on 06/11/2019, most recently received systemic antineoplastic chemotherapy on 05/15/2019 administered intravenously through the right hand. Following the treatment, she developed erythema, swelling and pain of the right hand and was evaluated by her primary oncologist, Dr. Zamudio, who prescribed oral Keflex. Her right hand continued to get worse, spread into her wrist. She was afebrile but came to the hospital and was admitted for treatment of cellulitis having failed outpatient Keflex. PAST MEDICAL HISTORY: Significant for the breast cancer as above, hypertension. PERTINENT LABORATORY DATA ON ADMISSION: White count 29.6, hemoglobin 12.4, platelets 259,000. Sodium 137, potassium 4.3, BUN 12, creatinine 0.61, AST 41, ALT 87, alkaline phosphatase 179, CRP 0.82. HOSPITAL COURSE: The patient was admitted for cellulitis having failed oral Keflex and she was placed on vancomycin. However, she developed facial flushing and erythema and so was switched to ceftaroline. Vancomycin is now listed as an allergy. She remained on ceftaroline for two days. Her hand swelling has resolved. Her erythema is starting to contract and is significantly less red than it was when she came in. Her white blood cell count is down to 10.8 on the day of discharge. Blood cultures were negative. Methicillin-resistant Staphylococcus aureus (MRSA) PCR was negative, and at this point, she is felt stable for discharge home on oral antibiotics. We will double cover her with doxycycline 100 mg twice a day and Keflex 5 mg twice a day. She has had three days of antibiotics in the hospital. She will likely need about seven more days of antibiotics as an outpatient. DISPOSITION: She is stable for discharge home. She has a preoperative appointment at 01:00 o'clock today and will be discharged this morning in an effort to get her to her appointment but she will start up her oral antibiotics today as soon as she is discharged. I may give her a dose of Keflex and doxycycline before she goes so she does not have to worry about picking those antibiotics up this morning and holding up her travels. DIET: Regular. ACTIVITY: As tolerated. MEDICATIONS: - Keflex 500 mg twice a day for seven more days - doxycycline 100 mg twice a day for seven more days - Tylenol 650 mg four times a day - lisinopril 5 mg daily - Zofran 8 mg every six hours as needed - Paxil 10 mg daily - prochlorperazine malleate 10 mg every eight hours as needed for nausea and vomiting She will followup with Dr. Michele next week. DISCHARGE DIAGNOSES: 1. Right hand cellulitis, failed outpatient oral antibiotics. 2. Infiltrating ductal carcinoma of the left breast, stage II. 3. Hypertension.
== END 2019-05-29 09:30 | disposition home or self-care (01) | DRG 383 ==
LOC: M ED 13:41 → M ED INP 16:05 → M MS5PR 20:19 → M MS4PR 05-28 14:05
PROVIDERS: ADMIT Internal Medicine; ATTEND Family Medicine
DX: L03.113 Cellulitis of right upper limb (principal); I10 Essential (primary) hypertension; C50.912 Malignant neoplasm of unspecified site of left female breast; Z92.21 Personal history of antineoplastic chemotherapy; Z79.899 Other long term (current) drug therapy; J30.2 Other seasonal allergic rhinitis

== ENCOUNTER → 2020-02-19 | Outpatient (CLI) | payer BC ==
[~2020-02-19] MED LIST changes: +ACET-907 PO; +ALLE180T33 PO; +CEPH500C PO; +DOXY100C PO; -HYDR-2808 PO; +HYDR-4429 PO; +LETR2.5T2 PO; +ONDA8TAB10 PO; -ONDA8TAB7 PO
--- NOTE | 2020-03-30 15:31 | DEXA ---
AP SPINE L1 - L4 0.913 -2.3 -1.1 LT FEMUR TOTAL 1.060 0.4 1.3 LT NECK 0.922 -0.8 0.4 RT FEMUR TOTAL 0.996 -0.1 0.8 RT NECK 0.869 -1.2 0.0 TOTAL BODY TOTAL OTHER COMMENTS: Normal bone densitometry of the left hip. There is low bone density of the spine. There is low bone density of the right hip. The decreased density of the spine does represent significant change. The decreased density of the left hip does not represent a significant change. The increased density of the right hip does represent a significant change. The density of the spine is increased 6.7% since the initial exam on 02/20/2017. The decreased 2.5% since the most recent exam on 02/17/2019. The density of the left hip has decreased 3.5% since the initial exam on 02/20/2017. The density of the left hip has decreased 0.8% since the most recent exam on 02/17/2019. The density of the right hip has decreased 3.8% since the initial exam on 02/20/2017. The density of the right hip has increased 2.3% since the most recent exam on 02/17/2019. FOLLOW-UP: Recommendation for the next bone density exam: 2 years. HARSHAD
== END ==
LOC: M WHC 12:40
PROVIDERS: ATTEND Internal Medicine Medical Oncology
DX: M85.88 Other specified disorders of bone density and structure, other site (principal); M85.851 Other specified disorders of bone density and structure, right thigh

== ENCOUNTER → 2021-09-16 | Outpatient (REF) | payer BC ==
[~2021-09-16] MED LIST changes: -DOXY100C PO; +DOXY100C3 PO; -LISI-542 PO; +LISI5TAB11 PO; +ONDA-84 PO; -ONDA8TAB10 PO; -PROC10TA4 PO; +PROC10TA5 PO
[2021-09-16 11:48] LABS: HEMOGLOBIN 12.5 g/dl (12.0-15.5); MEAN CORPUSCULAR HGB CONC 32.9 g/dl (32.0-36.5); MEAN CORPUSCULAR VOLUME 97.2 fl (80.0-96.0); PLATELET COUNT, AUTOMATED 271 10^3/uL (150-450); RED BLOOD COUNT 3.91 10^6/uL (4.00-5.40)
[2021-09-16 12:37] LABS: ALBUMIN 3.6 GM/DL (3.2-5.2); ALT/SGPT 24 U/L (12-78); BILIRUBIN,TOTAL 0.3 MG/DL (0.2-1.0); BLOOD UREA NITROGEN 14 MG/DL (7-18); CALCIUM LEVEL 9.7 MG/DL (8.8-10.2); CARBON DIOXIDE LEVEL 32 MEQ/L (21-32); CHLORIDE LEVEL 106 MEQ/L (98-107); CHOLESTEROL LEVEL 173 MG/DL (<200); CHOLESTEROL RISK RATIO 3.392 (<5); CREATININE FOR GFR 0.86 MG/DL (0.55-1.30); GLOMERULAR FILTRATION RATE > 60.0 (>45); GLUCOSE, FASTING 119 MG/DL (70-100); HDL CHOLESTEROL 51 MG/DL (>40); LDL CHOLESTEROL 93 MG/DL (<100); NON-HDL-C 122 MG/DL; POTASSIUM SERUM 4.3 MEQ/L (3.5-5.1); SODIUM LEVEL 142 MEQ/L (136-145); TOTAL PROTEIN 6.8 GM/DL (6.4-8.2); TRIGLYCERIDES LEVEL 144 MG/DL (<150)
[2021-09-16 12:58] LABS: HEMOGLOBIN A1c 6.5 %
== END ==
LOC: M SFHCCLAY 07:37
PROVIDERS: ATTEND Nurse Practitioner Family
DX: I10 Essential (primary) hypertension (principal); N20.0 Calculus of kidney; Z13.1 Encounter for screening for diabetes mellitus; E78.5 Hyperlipidemia, unspecified

== ENCOUNTER → 2021-09-20 | Outpatient (CLI) | payer BC | LOC: M PLAIMG 12:13 | PROVIDERS: ATTEND Physician Assistant | DX: N20.1 Calculus of ureter (principal) ==

== ENCOUNTER → 2021-09-29 | Outpatient (CLI) | payer BC | LOC: M PLAIMG 09:38 | PROVIDERS: ATTEND Physician Assistant | DX: N20.1 Calculus of ureter (principal) ==

== ENCOUNTER → 2021-10-18 | Outpatient (REF) | payer BC ==
[~2021-10-18] MED LIST changes: +HYDR-3713; +MONT10TA97; +ONDA4TAB6; +TAMS1CAP17
[2021-10-18 11:31] LABS: BASO % 0.7 % (0.0-1.0); EOS # 0.1 10^3/uL (0.0-0.5); EOS % 1.3 % (0.0-3.0); HEMATOCRIT 39.6 % (36.0-47.0); HEMOGLOBIN 13.3 g/dl (12.0-15.5); LYMPH # 1.7 10^3/uL (1.5-5.0); LYMPH % 27.5 % (24.0-44.0); MEAN CORPUSCULAR HEMOGLOBIN 32.4 pg (27.0-33.0); MEAN CORPUSCULAR HGB CONC 33.6 g/dl (32.0-36.5); MEAN CORPUSCULAR VOLUME 96.4 fl (80.0-96.0); MONO # 0.4 10^3/uL (0.0-0.8); NEUTROPHILS # 3.8 10^3/uL (1.5-8.5); PLATELET COUNT, AUTOMATED 279 10^3/uL (150-450); RED BLOOD COUNT 4.11 10^6/uL (4.00-5.40)
[2021-10-18 11:36] LABS: APPEARANCE, URINE CLEAR (CLEAR); BACTERIA, URINE AUTO NEGATIVE (NEGATIVE); BILIRUBIN, URINE AUTO NEGATIVE (NEGATIVE); BLOOD, URINE BLOOD 1+ (NEGATIVE); COLOR, URINE YELLOW (YELLOW); GLUCOSE, URINE (UA) AUTO NEGATIVE (NEGATIVE); KETONE, URINE AUTO NEGATIVE (NEGATIVE); LEUKOCYTE ESTERASE, URINE AUTO NEGATIVE (NEGATIVE); MUCUS, URINE SMALL (NEGATIVE); NITRITE, URINE AUTO NEGATIVE (NEGATIVE); PROTEIN, URINE AUTO NEGATIVE (NEGATIVE); RBC, URINE AUTO 2 /HPF (0-3); SPECIFIC GRAVITY URINE AUTO 1.017 (1.002-1.035); SQUAMOUS EPITHELIAL CELL UR AU 0 /HPF (0-6); UROBILINOGEN, URINE AUTO 0.2 mg/dL (0.0-2.0); WBC, URINE AUTO 6 /HPF (0-3)
[2021-10-18 12:28] LABS: BLOOD UREA NITROGEN 17 MG/DL (7-18); CARBON DIOXIDE LEVEL 28 MEQ/L (21-32); CHLORIDE LEVEL 106 MEQ/L (98-107); CREATININE FOR GFR 0.78 MG/DL (0.55-1.30); GLOMERULAR FILTRATION RATE > 60.0 (>45); GLUCOSE, FASTING 121 MG/DL (70-100); POTASSIUM SERUM 4.5 MEQ/L (3.5-5.1); SODIUM LEVEL 140 MEQ/L (136-145)
== END ==
LOC: M SFHCCLAY 08:03
PROVIDERS: ATTEND Nurse Practitioner Family
DX: N20.1 Calculus of ureter (principal)

== ENCOUNTER → 2021-10-18 | Outpatient (CLI) | payer BC | LOC: M CLY 08:09 | PROVIDERS: ATTEND Physician Assistant | DX: N20.1 Calculus of ureter (principal) ==

== ENCOUNTER → 2021-10-20 | Outpatient (REF) | payer BC ==
[2021-10-20 15:59] LABS: APPEARANCE, URINE CLEAR (CLEAR); BACTERIA, URINE AUTO NEGATIVE (NEGATIVE); BILIRUBIN, URINE AUTO NEGATIVE (NEGATIVE); BLOOD, URINE BLOOD 1+ (NEGATIVE); COLOR, URINE STRAW (YELLOW); GLUCOSE, URINE (UA) AUTO NEGATIVE (NEGATIVE); KETONE, URINE AUTO NEGATIVE (NEGATIVE); LEUKOCYTE ESTERASE, URINE AUTO NEGATIVE (NEGATIVE); NITRITE, URINE AUTO NEGATIVE (NEGATIVE); PROTEIN, URINE AUTO NEGATIVE (NEGATIVE); RBC, URINE AUTO 0 /HPF (0-3); SPECIFIC GRAVITY URINE AUTO 1.005 (1.002-1.035); SQUAMOUS EPITHELIAL CELL UR AU 0 /HPF (0-6); UROBILINOGEN, URINE AUTO 0.2 mg/dL (0.0-2.0); WBC, URINE AUTO 1 /HPF (0-3)
== END ==
LOC: M SFHCCLAY 15:43
PROVIDERS: ATTEND Nurse Practitioner Family
DX: Z01.818 Encounter for other preprocedural examination (principal)

== ENCOUNTER → 2021-10-24 | Outpatient (CLI) | payer BC | LOC: M LABSMTC 09:59 | PROVIDERS: ATTEND Anesthesiology | DX: Z11.52 Encounter for screening for COVID-19 (principal); Z20.822 Contact with and (suspected) exposure to COVID-19 ==

== ENCOUNTER 2021-10-28 07:50 | Day surgery (SDC) | payer BC ==
[~2021-10-28] VITALS: Ht 160 cm; Wt 88.6 kg
[~2021-10-28 07:50] MED LIST changes: +LIDOCAINE 1% MDV 20ML VIAL SQ PRN; +LR 1,000 ML IV ONE; +ceFAZolin SOD 2 GM in IV 1 EA IV ONE
[2021-10-28] MEDS ORDERED: fentaNYL 100 MCG/2 ML INJECTION As Ordered ONE (07:54)
[2021-10-28] MEDS ORDERED: dexameTHASONE 4 MG/ML 1ML VIAL (J1100 PER 1MG) As Ordered ONE (07:55)
[2021-10-28] MEDS ORDERED: propofoL 200 MG/20 ML VIAL As Ordered ONE (07:55)
[2021-10-28] MEDS ORDERED: MIDAZOLAM INJ 2MG/2ML VIAL (J2250 PER 1MG) As Ordered ONE (07:55)
[2021-10-28] MEDS ORDERED: LIDOCAINE 2% 100MG/5ML SDV (FOR ANES.) As Ordered ONE (07:55)
[2021-10-28] MEDS ORDERED: ONDANSETRON 4MG/2ML VIAL As Ordered ONE (07:55)
[2021-10-28] MEDS ORDERED: ISOVUE-300 61% 50ML VIAL As Ordered ONE (09:19)
[2021-10-28] MEDS ORDERED: ACETAMINOPHEN 1000MG 100ML IV BTL (OFIRMEV) (J0131 PER 10MG) As Ordered ONE (09:43)
[2021-10-28] MEDS ORDERED: ePHEDrine SULFATE 25 MG/5 ML(5MG/ML) SYRINGE As Ordered ONE (09:54)
[2021-10-28] MEDS ORDERED: PHENYLephrine 500MCG 5ML (100MCG/ML) SYRINGE As Ordered ONE (09:54)
[2021-10-28] MEDS ORDERED: LR 1,000 ML IV SCH (10:45)
[2021-10-28] MEDS ORDERED: fentaNYL 100 MCG/2 ML INJECTION IV PRN (10:45)
[2021-10-28] MEDS ORDERED: ONDANSETRON 4MG/2ML VIAL IV PRN (10:45)
[2021-10-28] MEDS ORDERED: oxyCODONE 5MG TAB PO PRN (10:45)
[2021-10-28] MEDS ORDERED: PERCOCET 5MG/325MG TAB PO PRN (10:50)
[2021-10-28 11:30] VITALS: BP 131/64
[2021-11-03 11:08] LABS: CA Oxalate Dihy 10 % (.); Ca Ox Monohydrate 90 % (.); Size 4x3 mm (.)
== END 2021-10-28 11:38 | disposition home or self-care (01) ==
LOC: M SDC 07:50
PROVIDERS: ATTEND Urology
DX: N20.1 Calculus of ureter (principal); I10 Essential (primary) hypertension; E78.5 Hyperlipidemia, unspecified; C50.911 Malignant neoplasm of unspecified site of right female breast; C50.912 Malignant neoplasm of unspecified site of left female breast; Z90.13 Acquired absence of bilateral breasts and nipples; Z98.82 Breast implant status; J30.1 Allergic rhinitis due to pollen; Z79.899 Other long term (current) drug therapy; Z79.811 Long term (current) use of aromatase inhibitors; Z88.1 Allergy status to other antibiotic agents
CPT/HCPCS: 52356; 74420; 82365; 88300; C1769; C1894; C2617; J0131; J0690; J1100; J2250; J2370; J2405; J3010; Q9967

== ENCOUNTER → 2021-11-08 | Outpatient (CLI) | payer BC ==
[~2021-11-08] MED LIST changes: -LIDOCAINE 1% MDV 20ML VIAL SQ PRN; -LR 1,000 ML IV ONE; -ceFAZolin SOD 2 GM in IV 1 EA IV ONE
== END ==
LOC: M CARPUL 09:24
PROVIDERS: ATTEND Nurse Practitioner Family
DX: I51.7 Cardiomegaly (principal)

== ENCOUNTER → 2022-02-21 | Outpatient (CLI) | payer BC | LOC: M WHC 12:46 | PROVIDERS: ATTEND Specialist | DX: Z85.3 Personal history of malignant neoplasm of breast (principal); Z79.811 Long term (current) use of aromatase inhibitors; M85.851 Other specified disorders of bone density and structure, right thigh; M85.88 Other specified disorders of bone density and structure, other site ==

== ENCOUNTER → 2022-05-12 | Outpatient (CLI) | payer BC | LOC: M PLAIMG 08:08 | PROVIDERS: ATTEND Urology | DX: N20.0 Calculus of kidney (principal) ==

== ENCOUNTER → 2022-07-31 | Outpatient (CLI) | payer BC ==
[~2022-07-31] MED LIST changes: -MONT10TA97; +MONT10TA97 PO; -PAXI10TA12 PO; +PAXI10TA13 PO
== END ==
LOC: M LABSMTC 10:47
PROVIDERS: ATTEND Anesthesiology
DX: Z01.818 Encounter for other preprocedural examination (principal)

== ENCOUNTER → 2022-09-04 | Outpatient (CLI) | payer BC | LOC: M LABSMTC 11:05 | PROVIDERS: ATTEND Anesthesiology | DX: Z01.812 Encounter for preprocedural laboratory examination (principal) ==

== ENCOUNTER 2022-09-08 09:07 | Day surgery (SDC) | payer BC ==
[~2022-09-08] VITALS: Ht 160 cm; Wt 86.8 kg
[~2022-09-08 09:07] MED LIST changes: +NS 1,000 ML IV ONE
[2022-09-08] MEDS ORDERED: propofoL 200 MG/20 ML VIAL As Ordered ONE ×2 (11:58→12:16)
[2022-09-08] MEDS ORDERED: LIDOCAINE 2% 100MG/5ML SDV (FOR ANES.) As Ordered ONE (11:58)
[2022-09-08 13:06] VITALS: BP 126/70
== END 2022-09-08 13:09 | disposition home or self-care (01) ==
LOC: M OPP 09:07
PROVIDERS: ATTEND Internal Medicine Gastroenterology
DX: Z12.11 Encounter for screening for malignant neoplasm of colon (principal); D12.0 Benign neoplasm of cecum; D12.2 Benign neoplasm of ascending colon; D12.4 Benign neoplasm of descending colon; D12.5 Benign neoplasm of sigmoid colon; K57.30 Diverticulosis of large intestine without perforation or abscess without bleeding; K64.8 Other hemorrhoids; I10 Essential (primary) hypertension; Z85.3 Personal history of malignant neoplasm of breast; Z92.3 Personal history of irradiation; Z92.21 Personal history of antineoplastic chemotherapy; Z87.442 Personal history of urinary calculi; Z88.1 Allergy status to other antibiotic agents; Z79.899 Other long term (current) drug therapy; Z82.49 Family history of ischemic heart disease and other diseases of the circulatory system

== ENCOUNTER → 2023-10-22 | Outpatient (CLI) | payer BC ==
[~2023-10-22] MED LIST changes: +FLON1SPR NARES; -NS 1,000 ML IV ONE
== END ==
LOC: M RAD 11:25
PROVIDERS: ATTEND Internal Medicine Medical Oncology
DX: C50.919 Malignant neoplasm of unspecified site of unspecified female breast (principal); M43.17 Spondylolisthesis, lumbosacral region

== ENCOUNTER 2023-10-31 09:50 | Emergency (ER) | payer BC ==
[~2023-10-31] VITALS: Ht 160 cm; Wt 87.5 kg
[2023-10-31] MEDS: ONDANSETRON 4MG 2ML VIAL IV ONE (10:16)
[2023-10-31] MEDS: KETOROLAC 30 MG/ML 1ML VIAL IV ONE (10:16)
[2023-10-31 10:24] LABS: BASO % 0.3 % (0.0-1.0); EOS # 0.1 10^3/uL (0.0-0.5); EOS % 0.7 % (0.0-3.0); HEMATOCRIT 39.9 % (36.0-47.0); HEMOGLOBIN 13.7 g/dl (12.0-15.5); LYMPH # 1.6 10^3/uL (1.5-5.0); LYMPH % 14.7 % (24.0-44.0); MEAN CORPUSCULAR HEMOGLOBIN 32.5 pg (27.0-33.0); MEAN CORPUSCULAR HGB CONC 34.3 g/dl (32.0-36.5); MEAN CORPUSCULAR VOLUME 94.8 fl (80.0-96.0); MONO # 0.4 10^3/uL (0.0-0.8); MONO % 3.9 % (2.0-8.0); NEUTROPHILS # 8.4 10^3/uL (1.5-8.5); NEUTROPHILS % 79.8 % (36.0-66.0); PLATELET COUNT, AUTOMATED 283 10^3/uL (150-450); RED BLOOD COUNT 4.21 10^6/uL (4.00-5.40); WHITE BLOOD COUNT 10.5 10^3/uL (4.0-10.0)
[2023-10-31 10:56] LABS: ALBUMIN 3.8 G/DL (3.2-5.2); ALKALINE PHOSPHATASE 119 U/L (46-116); ALT/SGPT 23 U/L (7.0-40); AST/SGOT 17 U/L (<34); BILIRUBIN,DIRECT 0.1 MG/DL (<0.4); BILIRUBIN,TOTAL 0.4 MG/DL (0.3-1.2); BLOOD UREA NITROGEN 16 MG/DL (9-23); CALCIUM LEVEL 9.8 MG/DL (8.3-10.6); CARBON DIOXIDE LEVEL 25 MMOL/L (20-31); CHLORIDE LEVEL 103 MMOL/L (98-107); CREATININE FOR GFR 0.62 MG/DL (0.55-1.30); GLOMERULAR FILTRATION RATE > 60.0 (>45); GLUCOSE, FASTING 150 MG/DL (74-106); POTASSIUM SERUM 4.4 MMOL/L (3.5-5.1); SODIUM LEVEL 136 MMOL/L (136-145)
[2023-10-31] MEDS ORDERED: HYDR-3713 PO (11:47)
[2023-10-31] MEDS ORDERED: KETO10TAB PO (11:47)
[2023-10-31] MEDS ORDERED: FLOM0.4C39 PO (11:47)
[2023-10-31] MEDS ORDERED: ONDA4TAB6 PO (11:47)
[2023-10-31 11:53] VITALS: BP 135/91; TEMP 97.5; O2SAT 100
[2023-10-31] MEDS: NORCO, ANEXSIA 5/325MG TABLET (HYDROcodone/ACETAMINOPHEN) PO ONE (12:14)
== END 2023-10-31 12:20 | disposition home or self-care (01) ==
LOC: M ED 09:50
DX: N20.1 Calculus of ureter (principal); Z88.8 Allergy status to other drugs, medicaments and biological substances; Z91.09 Other allergy status, other than to drugs and biological substances; Z79.1 Long term (current) use of non-steroidal anti-inflammatories (NSAID); Z79.899 Other long term (current) drug therapy
CPT/HCPCS: 74176; 80048; 80076; 81001; 85025; 96374; 99284; J1885; J2405

== ENCOUNTER → 2023-11-15 | Outpatient (REF) | payer BC ==
[~2023-11-15] MED LIST changes: +FLOM0.4C39 PO; +HYDR-3713 PO; +KETO10TAB PO; +ONDA4TAB6 PO
== END ==
LOC: M SMT 17:16
PROVIDERS: ATTEND Nurse Practitioner Family
DX: N20.0 Calculus of kidney (principal)

== ENCOUNTER → 2023-11-19 | Outpatient (CLI) | payer BC | LOC: M PLARAD 07:57 | PROVIDERS: ATTEND Nurse Practitioner | DX: C50.812 Malignant neoplasm of overlapping sites of left female breast (principal) | CPT/HCPCS: 78815; A9552 ==

== ENCOUNTER → 2024-05-12 | Outpatient (CLI) | payer BC ==
[~2024-05-12] MED LIST changes: +ONDA-282; +ONDA-282 PO; -ONDA4TAB6; -ONDA4TAB6 PO
== END ==
LOC: M WHC 12:54
PROVIDERS: ATTEND Nurse Practitioner
DX: Z13.820 Encounter for screening for osteoporosis (principal); Z85.3 Personal history of malignant neoplasm of breast; M85.851 Other specified disorders of bone density and structure, right thigh; M85.852 Other specified disorders of bone density and structure, left thigh; M85.88 Other specified disorders of bone density and structure, other site

== ENCOUNTER → 2024-05-16 | Outpatient (CLI) | payer BC | LOC: M PLAIMG 11:13 | PROVIDERS: ATTEND Nurse Practitioner Family | DX: N20.0 Calculus of kidney (principal) ==